=== PATIENT | male | born 1960 | race Caucasian/White ===

== ENCOUNTER 2022-08-05 08:51 | Outpatient (CLI) | payer BC, SELFPAY ==
[2022-08-05 14:25] LABS: Chloride* 104 mmol/L (96-114); Potassium* 4.6 mmol/L (3.6-5.1); Sodium* 139 mmol/L (135-149)
[2022-08-05 14:28] LABS: Blood Urea Nitrogen* 20 mg/dL (7-30); Calcium* 9.7 mg/dL (8.4-10.6); Cholesterol* 162 mg/dL (90-199); Estimated Glomerular Filt Rate 87 ml/min; HDL Cholesterol* 48 mg/dL (>=40); LDL Cholesterol Calculated 94 mg/dL (<100); Triglycerides* 99 mg/dL (40-149)
[2022-08-05 15:50] LABS: Carbon Dioxide* 26 mmol/L (20-32); Glucose* 112 mg/dL (60-115)
[2022-08-05 22:11] LABS: PSA Screen* 0.77 ng/mL (0.10-4.00)
== END 2022-08-05 08:52 | disposition home or self-care (01) ==
PROVIDERS: PCP Family Medicine; Visit Provider Family Medicine
DX: Z00.00 Encounter for general adult medical examination without abnormal findings (principal); E78.5 Hyperlipidemia, unspecified; Z13.1 Encounter for screening for diabetes mellitus; Z12.5 Encounter for screening for malignant neoplasm of prostate
CPT/HCPCS: 80048; 80061; 84153

== ENCOUNTER 2023-08-10 08:36 | Outpatient (CLI) | payer BC, SELFPAY | END 2023-08-10 08:37 | disposition home or self-care (01) | PROVIDERS: PCP Family Medicine; Visit Provider Family Medicine | DX: Z01.818 Encounter for other preprocedural examination (principal); E78.5 Hyperlipidemia, unspecified | CPT/HCPCS: 80048; 80061 ==

== ENCOUNTER 2024-01-24 19:21 | Outpatient (CLI) | payer BC, SELFPAY ==
--- NOTE | 2024-02-02 09:23 | W.PM.SLEEP ---
Sleep Study Details Details Interpreting Provider: Ghulam Date of Sleep Study: 01/24/24 Sleep Study Details: STUDY TYPE:? Home unattended ? BMI:? 31.7 ORDERING PROVIDER:? Ghulam INDICATION:? Concerns about sleep apnea ? SLEEP SUMMARY:? 462.3 minutes monitored RESPIRATORY SUMMARY:? AHI 21.4 Low oxygen 82 34.3% of study oxygen less than 90% Snoring 88.1% PERIODIC LIMB MOVEMENTS OF SLEEP:? Not recorded during home study CARDIAC:? Range 56-125, mean 70.4 IMPRESSION:? Moderate obstructive sleep apnea with significant hypo oxygenation during over 1/3 of the study RECOMMENDATION: Recommend trial of AutoSet CPAP. Once effective therapy is established overnight oximetry study should be performed.
== END 2024-01-24 19:22 | disposition home or self-care (01) ==
LOC: SLEEP 19:22
PROVIDERS: PCP Family Medicine; Visit Provider Otolaryngology
DX: G47.33 Obstructive sleep apnea (adult) (pediatric) (principal)
CPT/HCPCS: 95806

== ENCOUNTER 2024-08-18 11:41 | Outpatient (CLI) | payer BC, SELFPAY | END 2024-08-18 11:42 | disposition home or self-care (01) | PROVIDERS: PCP Family Medicine; Visit Provider Family Medicine | DX: E78.2 Mixed hyperlipidemia (principal); Z12.5 Encounter for screening for malignant neoplasm of prostate | CPT/HCPCS: 80048; 80061; G0103 ==

== ENCOUNTER 2024-08-31 07:43 | Outpatient (CLI) | payer BC, SELFPAY ==
--- NOTE | 2024-08-31 08:56 | W.ANESCHARGE ---
Anesthesia Charges Start Date/Time Anesthesia Start Date: 08/31/24 Stop Date/Time Anesthesia Stop Date: 08/31/24
--- NOTE | 2024-08-31 09:29 | W.ANESCHARGE ---
Anesthesia Charges Start Date/Time Anesthesia Start Date: 08/31/24 Anesthesia Start Time: 08:54 Stop Date/Time Anesthesia Stop Date: 08/31/24 Anesthesia Stop Time: 09:27
== END 2024-08-31 07:44 | disposition home or self-care (01) ==
LOC: OP CLINIC 07:43
PROVIDERS: PCP Family Medicine; Visit Provider Surgery
DX: Z12.11 Encounter for screening for malignant neoplasm of colon (principal); D12.2 Benign neoplasm of ascending colon; D12.3 Benign neoplasm of transverse colon; D12.5 Benign neoplasm of sigmoid colon; Z86.0100 Personal history of colon polyps, unspecified; Z83.719 Family history of colon polyps, unspecified
CPT/HCPCS: 00811; 45385; 88305; J2704

== ENCOUNTER 2025-09-11 10:37 | Outpatient (CLI) | payer OTHER, SELFPAY | END 2025-09-11 10:38 | disposition home or self-care (01) | PROVIDERS: PCP Family Medicine; Visit Provider Family Medicine | DX: Z12.5 Encounter for screening for malignant neoplasm of prostate (principal); Z13.1 Encounter for screening for diabetes mellitus; E78.2 Mixed hyperlipidemia | CPT/HCPCS: 80048; 80061; G0103 ==